=== PATIENT | male | born 1950 | race Hispanic/Latino ===

== ENCOUNTER 2018-02-13 12:55 | Emergency (ER) | payer OTHER ==
[2018-02-13] MEDS ORDERED: NORMODYNE IV ONE ×3 (13:03→14:40)
[2018-02-13 13:07] LABS: Basophils % (Auto) 0.4 % (0.0-1.8); Eosinophils # (Auto) 0.2 K/mm3 (0.0-0.4); Eosinophils % (Auto) 2.9 % (0.0-4.3); Hematocrit 48.5 % (35.5-45.6); Hemoglobin 16.5 gm/dl (11.8-15.2); Lymphocytes # (Auto) 3.9 K/mm3 (1.2-5.4); Lymphocytes % (Auto) 45.2 % (13.4-35.0); Mean Corpuscular HGB Conc 34 % (32-34); Mean Corpuscular Hemoglobin 29 pg (28-32); Mean Corpuscular Volume 85 fl (84-94); Monocytes # (Auto) 0.7 K/mm3 (0.0-0.8); Monocytes % (Auto) 7.6 % (0.0-7.3); Platelet Count 158 K/mm3 (140-440); Red Blood Count 5.68 M/mm3 (3.65-5.03); Red Cell Distribution Width 14.4 % (13.2-15.2)
[2018-02-13] MEDS ORDERED: ZOFRAN IV ONE (13:08)
--- NOTE | 2018-02-13 13:16 | Cat Scan Report ---
CT scan of head without IV contrast: Stroke protocol. History: Neurodeficits. Findings: Ventricles are normal in size and midline in location. Amnn-ad-bflrelly volume loss. No evidence of acute ischemic, hemorrhage or mass. No extra axial fluid collection. Normal brainstem and cerebellum. Normal visualized sinuses and mastoid cells Impression: No acute intracranial abnormality. Dr. Tanner was informed of the findings at 1:09 PM on 02/13/18. [id number]
[2018-02-13 13:19] LABS: INR 0.87 (0.87-1.13); Partial Thromboplastin Time 26.1 Sec. (24.2-36.6)
[2018-02-13] MEDS ORDERED: ACTIVASE ONE (13:21)
[2018-02-13 13:22] LABS: BUN/Creatinine Ratio 15; Blood Urea Nitrogen 16 mg/dL (9-20); Calcium 9.5 mg/dL (8.4-10.2); Hemolysis Index 14
[2018-02-13] MEDS ORDERED: NACL 0.9% 50 ML ONE (13:22)
[2018-02-13] MEDS ORDERED: KEPPRA 1,000 MG/NS 0.75% 100ML 1,000 MG/100 ML BAG IV ONE ×2 (13:32→13:39)
--- NOTE | 2018-02-13 13:37 | XRay Report ---
Single view chest: History: Hypertension. Findings: Borderline thyromegaly. Trachea is midline. No consolidation, pneumothorax or pleural effusion. Impression: No acute cardiopulmonary findings.
[2018-02-13] MEDS ORDERED: ATIVAN IV ONE (13:41)
[2018-02-13] MEDS ORDERED: ACTIVASE IV ONE ×2 (13:55)
[2018-02-13] MEDS ORDERED: NACL 0.9% IV ONE (13:55)
[2018-02-13] MEDS ORDERED: CARDENE 50 MG in NACL 0.9% 250ML 230 ML IV SCH (14:00)
--- NOTE | 2018-02-13 14:14 | Emergency Department Report ---
ED Neuro Deficit HPI - General Chief Complaint: Neuro Symptoms/Deficit Stated Complaint: STROKE Time Seen by Provider: 02/13/18 13:07 Source: EMS Mode of arrival: Stretcher Limitations: Altered Mental Status, Physical Limitation, Other - History of Present Illness Initial Comments: This is a 67 year old type 2 insulin-dependent diabetic with a history of severe hypertension but normal renal function and dyslipidemia who presents as a code stroke. The onset of symptoms were at or about 12:15 PM today. The patient was in the bathroom and exited the bathroom and fell but did not apparently hurt himself. He is on several antihypertensive medications or should be to include hydralazine lisinopril and metoprolol. He is on a statin. He is on insulin. He has no prior history of stroke. He does not complain of headache. He is aware that someone told him that he "was having a stroke". He knows he is at [facility] and that is Wednesday and his name. He is not specifically complaining of any symptoms. He appears to have complete left side denial and left hemiparesis at the door as well as a right conjugate gaze deviation. -: unknown Location: left face, left arm, left leg Presenting Symptoms: Present: Weak/Paralyzed One Side History of same: No Place: home Severity: severe Quality: weak Improves With: none Worsens With: none On Anticoagulants: No (Effient) Associated Symptoms: other (patient unable to describe symptoms) - Related Data Allergies/Adverse Reactions: Allergies Allergy/AdvReac Type Severity Reaction Status Date / Time Penicillins Allergy Unknown Verified 02/13/18 12:56 Sulfa (Sulfonamide Allergy Unknown Verified 02/13/18 13:41 Antibiotics) ED Review of Systems ROS: Stated complaint: STROKE Other details as noted in HPI Comment: Unobtainable due to pts medical conditions (but denies headache) ED Past Medical Hx - Past Medical History Hx Hypertension: Yes - Surgical History Additional Surgical History: Penial implant - Social History Smoking Status: Never Smoker Substance Use Type: None ED Neuro Physical Exam - General Limitations: Altered Mental Status, Physical Limitation, Other General appearance: anxious Suspected Stroke: Yes - Head Head exam: Present: atraumatic - Eye Eye exam: Present: other (right conjugate gaze deviation (Triplett)). Absent: PERRL, scleral icterus Pupils: Present: mydriatic (reactive and equal) - ENT ENT exam: Present: other (facial paresis) - Neck Neck exam: Present: full ROM, other (no bruit noted). Absent: tenderness, meningismus - Respiratory Respiratory exam: Present: normal lung sounds bilaterally - Cardiovascular Cardiovascular Exam: Present: regular rate, normal rhythm. Absent: systolic murmur, diastolic murmur, rubs, gallop - GI/Abdominal GI/Abdominal exam: Present: soft, normal bowel sounds. Absent: distended, tenderness, guarding, rebound, rigid - External exam: Present: normal external exam - Extremities Exam Extremities exam: Present: normal inspection - Back Exam Back exam: Present: normal inspection - Neurological Exam Neurological exam: Present: altered, motor sensory deficit. Absent: CN II-XII intact - NIHSS Assessment Interval: Baseline 1a. Level of Consciousness: alert 1b. LOC Questions: answers correctly 1c. LOC Commands: performs tasks correctly 2. Best Gaze: forced deviation 3. Visual: no visual loss (unable to assess on left side complete side denial) 4. Facial Palsy: partial paralysis 5b. Motor Arm Right: no drift 5a. Motor Arm Left: some gravity effort 6a. Motor Leg Left: some gravity effort 6b. Motor Leg Right: no drift 7. Limb Ataxia: absent 8. Sensory: mild/moderate sensory loss 9. Best Language: no aphasia 10. Dysarthria: normal 11. Extinction/Inattention: profound inattention Total Score: 11 Stroke Severity: Moderate Stroke - Psychiatric Psychiatric exam: Present: agitated, anxious - Skin Skin exam: Present: warm, dry, intact, normal color. Absent: rash ED Course Vital Signs 02/13/18 02/13/18 02/13/18 13:10 13:25 13:30 Temperature 98.4 F Pulse Rate 103 H 94 H 104 H Pulse Rate [ Left Arm] Respiratory 16 25 H 28 H Rate Respiratory Rate [Left Arm] Blood Pressure 191/141 Blood Pressure [Left Arm] Blood Pressure 180/113 [Right] O2 Sat by Pulse 98 98 98 Oximetry O2 Sat by Pulse Oximetry [Left Arm] 02/13/18 02/13/18 02/13/18 13:34 13:35 13:37 Temperature Pulse Rate 102 H 110 H Pulse Rate [ Left Arm] Respiratory 22 Rate Respiratory Rate [Left Arm] Blood Pressure 191/141 Blood Pressure [Left Arm] Blood Pressure [Right] O2 Sat by Pulse 100 Oximetry O2 Sat by Pulse Oximetry [Left Arm] 02/13/18 02/13/18 13:45 14:02 Temperature Pulse Rate Pulse Rate [ 106 H Left Arm] Respiratory 27 H Rate Respiratory 20 Rate [Left Arm] Blood Pressure 158/85 Blood Pressure 158/85 [Left Arm] Blood Pressure [Right] O2 Sat by Pulse 98 Oximetry O2 Sat by Pulse 98 Oximetry [Left Arm] - Reevaluation(s) Reevaluation #1: I enlisted the aid of the stroke neurologist at [place] immediately. It is my impression that this is a large vessel stroke very likely MCA. Dr. Boyer was in agreement. Labetalol was ordered at the door as well as a Cardene drip. This was expeditiously begun. I spoke to the patient's son who called the patient's who told her son she thought he was on an anticoagulant starting with that W. She said she didn't think it was warfarin. I called [place] and discovered that the patient was on Effient. We reached the therapeutic zone for the patient's blood pressure. I confirmed with the stroke neurologist that he agreed with TPA in the face of Effient. I explained to the family that there would likely be an increased risk of intracranial hemorrhage because of this. They accepted the risk and accepted the device to proceed by the neurologist and myself. Therefore TPA was given. The patient's blood pressure is being monitored extremely carefully. The current plan is to complete CT angiographic study and transport the patient via helicopter to the [place] stroke center. We will be placing the angiographic studies on the regional PACs for the neurologist at [place] to review. We will not delay transfer for interpretation here. Thus, at this time the patient is receiving sedation to enable CT angiogram as well as to better control against blood pressure spikes. He was given 1 mg of Ativan IV 2. It was partially effective. I gave the patient Haldol 2.5 mg and Benadryl 25 mg IV. Air ambulance TRANSPORT is pending. 02/13/18 14:24 Reevaluation #2: I spoke with Dr. Zheng at [place] who concurred with the transfer plan. 02/13/18 14:34 - Lab Data Result diagrams: 02/13/18 13:02 02/13/18 13:02 Lab Results 02/13/18 02/13/18 02/13/18 Range/Units 13:02 13:02 13:02 WBC 8.6 (4.5-11.0) K/mm3 RBC 5.68 H (3.65-5.03) M/mm3 Hgb 16.5 H (11.8-15.2) gm/dl Hct 48.5 H (35.5-45.6) % MCV 85 (84-94) fl MCH 29 (28-32) pg MCHC 34 (32-34) % RDW 14.4 (13.2-15.2) % Plt Count 158 (140-440) K/mm3 Lymph % (Auto) 45.2 H (13.4-35.0) % Dawson % (Auto) 7.6 H (0.0-7.3) % Eos % (Auto) 2.9 (0.0-4.3) % Baso % (Auto) 0.4 (0.0-1.8) % Lymph # 3.9 (1.2-5.4) K/mm3 Dawson # 0.7 (0.0-0.8) K/mm3 Eos # 0.2 (0.0-0.4) K/mm3 Baso # 0.0 (0.0-0.1) K/mm3 Seg Neutrophils % 43.9 (40.0-70.0) % Seg Neutrophils # 3.8 (1.8-7.7) K/mm3 PT 12.2 (12.2-14.9) Sec. INR 0.87 (0.87-1.13) APTT 26.1 (24.2-36.6) Sec. Thrombin Time (15.1-19.6) Sec. Sodium 136 L (137-145) mmol/L Potassium 3.6 (3.6-5.0) mmol/L Chloride 99.5 (98-107) mmol/L Carbon Dioxide 24 (22-30) mmol/L Anion Gap 16 mmol/L BUN 16 (9-20) mg/dL Creatinine 1.1 (0.8-1.5) mg/dL Estimated GFR > 60 ml/min BUN/Creatinine Ratio 15 % Glucose 311 H (75-100) mg/dL Calcium 9.5 (8.4-10.2) mg/dL Troponin T < 0.010 (0.00-0.029) ng/mL 02/13/18 Range/Units 13:02 WBC (4.5-11.0) K/mm3 RBC (3.65-5.03) M/mm3 Hgb (11.8-15.2) gm/dl Hct (35.5-45.6) % MCV (84-94) fl MCH (28-32) pg MCHC (32-34) % RDW (13.2-15.2) % Plt Count (140-440) K/mm3 Lymph % (Auto) (13.4-35.0) % Dawson % (Auto) (0.0-7.3) % Eos % (Auto) (0.0-4.3) % Baso % (Auto) (0.0-1.8) % Lymph # (1.2-5.4) K/mm3 Dawson # (0.0-0.8) K/mm3 Eos # (0.0-0.4) K/mm3 Baso # (0.0-0.1) K/mm3 Seg Neutrophils % (40.0-70.0) % Seg Neutrophils # (1.8-7.7) K/mm3 PT (12.2-14.9) Sec. INR (0.87-1.13) APTT (24.2-36.6) Sec. Thrombin Time 16.5 (15.1-19.6) Sec. Sodium (137-145) mmol/L Potassium (3.6-5.0) mmol/L Chloride (98-107) mmol/L Carbon Dioxide (22-30) mmol/L Anion Gap mmol/L BUN (9-20) mg/dL Creatinine (0.8-1.5) mg/dL Estimated GFR ml/min BUN/Creatinine Ratio % Glucose (75-100) mg/dL Calcium (8.4-10.2) mg/dL Troponin T (0.00-0.029) ng/mL - EKG Data -: EKG Interpreted by Me EKG shows normal: sinus rhythm, axis (left anterior fascicular block), intervals , QRS complexes (right bundle-branch block), ST-T waves Rate: tachycardia Interpretation: [facility] - Radiology Data Radiology results: report reviewed interpreted by me: Chest x-ray and CT the head no acute process. Critical Care Time: Yes Critical care time in (mins) excluding proc time.: 90 Critical care attestation.: If time is entered above; I have spent that time in minutes in the direct care of this critically ill patient, excluding procedure time. ED Disposition Clinical Impression: CVA (cerebral vascular accident) Qualifiers: CVA mechanism: unspecified Qualified Code(s): I63.9 - Cerebral infarction, unspecified Disposition: DC/TX-70 ANOTHER TYPE HLTHCARE Is pt being admited?: No Does the pt Need Aspirin: No (not at this time we will defer that to [place]) Condition: Stable Time of Disposition: 14:38
[2018-02-13] MEDS ORDERED: HALDOL ONE (14:18)
[2018-02-13] MEDS ORDERED: BENADRYL ONE (14:18)
[2018-02-13] MEDS ORDERED: HALDOL IV ONE ×2 (14:19→14:40)
[2018-02-13] MEDS ORDERED: BENADRYL IV ONE (14:19)
[2018-02-13 14:24] LABS: Alanine Aminotransferase 8 units/L (7-56); Albumin 4.1 g/dL (3.9-5)
[2018-02-13 14:26] LABS: Bilirubin,Direct < 0.2 mg/dL (0-0.2)
--- NOTE | 2018-02-13 15:21 | Cat Scan Report ---
FINAL REPORT PROCEDURE: CT ANGIO HEAD TECHNIQUE: Computerized tomographic angiography of the head was performed during the IV injection of iodinated nonionic contrast including image processing. The image data was postprocessed using 2-dimensional multiplanar reformatted (MPR) and 3-dimensional (MIP and/or volume rendered) techniques. HISTORY: R MCA or ICA syndrome COMPARISON: No prior studies are available for comparison. FINDINGS: There is a dominant left vertebral artery. Basilar artery is widely patent. Both posterior cerebral arteries appear to be patent. Carotid siphon show minimal atherosclerotic change with a small amount of calcified plaquing. The vessels appear widely patent. A1 segments and anterior cerebral arteries as well as the middle cerebral arteries appear to be patent bilaterally. No high-grade areas of stenosis or occlusion visualized. No changes are seen that would suggest aneurysm or vascular malformation. IMPRESSION: The anterior and the posterior circulation appear intact without focal abnormality occlusion or stenosis.
[2018-02-13 15:31] VITALS: BP 158/85
--- NOTE | 2018-02-13 16:45 | Cat Scan Report ---
FINAL REPORT PROCEDURE: CT ANGIO NECK TECHNIQUE: Computerized tomographic angiography of the neck was performed after the IV injection of iodinated nonionic contrast including image processing. The image data was postprocessed using 2-dimensional multiplanar reformatted (MPR) and 3-dimensional (MIP and/or volume rendered) techniques. HISTORY: R MCA or ICA syndrome COMPARISON: No prior studies are available for comparison. Note: Assessment of carotid artery stenosis is based on measurement of the distal internal carotid artery diameter as the denominator for stenosis calculations and the [place] Symptomatic Carotid Endarterectomy Trial (NASCET) stenosis criteria . CPT 3100F FINDINGS: Mild atherosclerotic changes are seen in the aortic arch. There is no aneurysm or dissection visualized in the portion of the aorta included. There is a single trunk for the brachiocephalic artery and left common carotid artery, normal variant. The proximal end of the right common carotid artery is suboptimally seen due to beam hardening artifact. Common carotid artery otherwise appears widely patent. The carotid bulb appears widely patent. Internal carotid artery is tortuous otherwise appears widely patent. No dissection or occlusion visualized. No focal stenosis is identified. The left common carotid artery appears widely patent. Left internal carotid artery is tortuous although appears widely patent. There is no evidence of occlusion, dissection or significant stenosis. There is a dominant left vertebral artery. There is a very small caliber patent right vertebral artery, normal variant. No masses or pathologically enlarged lymph nodes are seen in the neck. Degenerative disc changes and facet arthritis present throughout the cervical spine. No fracture or subluxation is identified. IMPRESSION: Tortuosity of the carotid arteries is present as described. There is no occlusion, stenosis or dissection visualized. Vertebral arteries are patent. There is a dominant left vertebral artery and a very small caliber right vertebral artery, normal variant. No other abnormalities are seen per
== END 2018-02-13 15:20 | disposition other institution (70) ==
LOC: ED 12:55
DX: I63.9 Cerebral infarction, unspecified (principal); I10 Essential (primary) hypertension; E11.9 Type 2 diabetes mellitus without complications; E78.5 Hyperlipidemia, unspecified; Z88.0 Allergy status to penicillin; Z88.2 Allergy status to sulfonamides
CPT/HCPCS: 36415; 70450; 70496; 70498; 71045; 80048; 80074; 82962; 84484; 85025; 85610; 85670; 85730; 93005; 93010; 96365; 96375; 99291; 99292; J1200; J1630; J1953; J2060; J2997; J7050; Q9967